=== PATIENT | male | born 1960 | race African-American/Black ===

== ENCOUNTER 2018-09-10 08:01 | Emergency (ER) | payer OTHER ==
[~2018-09-10] VITALS: Ht 175.3 cm; Wt 80.0 kg
[2018-09-10] MEDS ORDERED: KETOROLAC 30MG/ML VIAL IV STA (08:33)
[2018-09-10 09:00] LABS: BASOPHILS % 0.2 % (0.0-2.0); EOSINOPHILS % 0.1 % (0.0-5.0); HEMATOCRIT. 42.5 % (42.0-52.0); HEMOGLOBIN. 14.5 g/dL (14.0-18.0); LYMPHOCYTES % 26.2 % (20.0-50.0); MEAN CORPUSCULAR HEMOGLOBIN 32.7 pg (28.0-32.0); MEAN CORPUSCULAR VOLUME 95.7 fL (80.0-94.0); MEAN PLATELET VOLUME 8.9 fl (7.4-10.4); MONOCYTES % 10.9 % (2.0-8.0); NEUTROPHILS % 62.6 % (40.0-76.0); PLATELET 245 x1000/uL (130-400); RED BLOOD CELL COUNT 4.44 mill/uL (4.7-6.1); RED CELL DISTRIBUTION WIDTH 13.8 % (11.6-14.6)
[2018-09-10 09:06] LABS: CHLORIDE 103 mEq/L (98-107)
[2018-09-10 10:11] LABS: CLARITY URINE CLEAR (CLEAR); COLOR URINE ORANGE (YELLOW); KETONES URINE NEGATIVE (NEGATIVE); LEUKOCYTE ESTERASE URINE TRACE (NEGATIVE); NITRITE URINE NEGATIVE (NEGATIVE); OCCULT BLOOD URINE NEGATIVE (NEGATIVE); PH URINE 6.5 (4.5-8.0); PROTEIN URINE NEGATIVE (NEGATIVE); SPECIFIC GRAVITY URINE 1.021 (1.005-1.030)
[2018-09-10] MEDS ORDERED: ONDANSETRON HCL 4MG/2ML INJ IV ONE ×2 (10:45→11:45)
[2018-09-10] MEDS ORDERED: MORPHINE SULFATE 4 MG/ML CPJ (NOT FOR IM USE) IV ONE ×2 (10:45→11:45)
[2018-09-10 14:15] VITALS: BP 150/90
== END 2018-09-10 14:17 | disposition home or self-care (01) ==
LOC: ER 08:01
DX: R10.9 Unspecified abdominal pain (principal); I10 Essential (primary) hypertension; M10.9 Gout, unspecified; K76.0 Fatty (change of) liver, not elsewhere classified
CPT/HCPCS: 36415; 71045; 71100; 74176; 80053; 81003; 83690; 85025; 96374; 96375; 96376; 99284; J1885; J2270; J2405

== ENCOUNTER 2019-01-11 11:16 | Emergency (ER) | payer OTHER ==
[~2019-01-11] VITALS: Ht 162.6 cm; Wt 91.0 kg
[2019-01-11] MEDS ORDERED: FLUORESCEIN SODIUM 1MG/STRIP BOTHEYE ONE (14:30)
[2019-01-11] MEDS ORDERED: IBUPROFEN 600MG TABLET PO ONE (15:00)
[2019-01-11 16:03] VITALS: BP 182/110
== END 2019-01-11 16:05 | disposition home or self-care (01) ==
LOC: ER 11:16
DX: S00.12XA Contusion of left eyelid and periocular area, initial encounter (principal); I10 Essential (primary) hypertension; Y04.0XXA Assault by unarmed brawl or fight, initial encounter; Y93.89 Activity, other specified; Y92.018 Other place in single-family (private) house as the place of occurrence of the external cause
CPT/HCPCS: 99283

== ENCOUNTER 2019-01-22 07:59 | Inpatient (IN) | payer OTHER ==
[~2019-01-22] VITALS: Ht 167.6 cm; Wt 90.8 kg
[2019-01-22] MEDS ORDERED: ASPIRIN 81MG TABLET PO ONE (08:30)
[2019-01-22 08:32] LABS: BASOPHILS % 0.8 % (0.0-2.0); EOSINOPHILS % 0.2 % (0.0-5.0); HEMATOCRIT. 48.6 % (42.0-52.0); HEMOGLOBIN. 16.6 g/dL (14.0-18.0); LYMPHOCYTES % 45.8 % (20.0-50.0); MEAN CORPUSCULAR HEMOGLOBIN 31.9 pg (28.0-32.0); MEAN CORPUSCULAR VOLUME 93.5 fL (80.0-94.0); MEAN PLATELET VOLUME 8.6 fl (7.4-10.4); MONOCYTES % 11.9 % (2.0-8.0); NEUTROPHILS % 41.3 % (40.0-76.0); PLATELET 269 x1000/uL (130-400); RED CELL DISTRIBUTION WIDTH 15.6 % (11.6-14.6)
[2019-01-22 08:38] LABS: CHLORIDE 100 mEq/L (98-107)
[2019-01-22] MEDS ORDERED: ACETAMINOPHEN 325MG TABLET PO PRN (11:30)
[2019-01-22] MEDS ORDERED: ONDANSETRON HCL 4MG/2ML INJ IV PRN (11:30)
[2019-01-22] MEDS ORDERED: MORPHINE SULFATE 2 MG/ML CPJ (NOT FOR IM USE) IV PRN (11:30)
[2019-01-22] MEDS ORDERED: SODIUM CHLORIDE 0.9% 500 ML IV ONE (11:30)
[2019-01-22 13:25] LABS: HEPATITIS B SURFACE ANTIGEN NEGATIVE
[2019-01-22 13:30] VITALS: BP 128/86
[2019-01-22 13:55] LABS: HEPATITIS A AB IGM NEGATIVE (NEGATIVE)
[2019-01-22] MEDS: ENOXAPARIN 40MG/0.4ML SYR SUBCUT SCH (14:00)
[2019-01-22] MEDS ORDERED: LORAZEPAM 2MG/ML CPJ IV PRN (14:45)
[2019-01-22] MEDS ORDERED: CLONIDINE 0.2MG TABLET PO PRN (15:30)
[2019-01-22] MEDS ORDERED: CLONIDINE 0.1MG TABLET PO PRN (15:30)
[2019-01-22] MEDS ORDERED: POTASSIUM CHLORIDE 20MEQ TABLET SR PO NR (15:30)
[2019-01-22 16:00] VITALS: BP 122/90
[2019-01-22] MEDS ORDERED: FOLIC ACID 1 MG, THIAMINE HCL 100 MG, MVI, ADULT NO.1 10 ML in DEXTROSE 5% WATER 1,000 ML IV SCH ×4 (17:00)
[2019-01-22] MEDS: AMLODIPINE 2.5MG TABLET PO SCH ×2 (18:00→20:51)
[2019-01-22] MEDS: SODIUM CHLORIDE 0.9% 1,000 ML IV SCH ×2 (18:00→20:57)
[2019-01-22 20:21] VITALS: BP 121/83
[2019-01-22] MEDS: METOPROLOL TARTRATE 50MG TABLET PO SCH (20:51)
[2019-01-22] MEDS: CHLORDIAZEPOXIDE 25MG CAPSULE PO SCH (22:13)
[2019-01-22 22:47] LABS: *BARBITURATES SCREEN URINE NEGATIVE (NEGATIVE); *BENZODIAZEPINES SCREEN URINE NEGATIVE (NEGATIVE)
[2019-01-22 22:48] LABS: *AMPHETAMINES SCREEN URINE NEGATIVE (NEGATIVE); *COCAINE SCREEN URINE NEGATIVE (NEGATIVE); CANNABINOID URINE SCREEN NEGATIVE (NEGATIVE); METHADONE URINE SCREEN NEGATIVE (NEGATIVE); OPIATES URINE SCREEN NEGATIVE (NEGATIVE); PHENCYCLIDINE URINE SCREEN NEGATIVE (NEGATIVE)
[2019-01-23] VITALS: BP 125/80
[2019-01-23 04:00] VITALS: BP 111/81
[2019-01-23] MEDS: CHLORDIAZEPOXIDE 25MG CAPSULE PO SCH ×2 (05:45→14:19)
[2019-01-23 07:11] LABS: BASOPHILS % 0.9 % (0.0-2.0); EOSINOPHILS % 1.4 % (0.0-5.0); HEMATOCRIT. 44.2 % (42.0-52.0); HEMOGLOBIN. 15.1 g/dL (14.0-18.0); LYMPHOCYTES % 43.7 % (20.0-50.0); MEAN CORPUSCULAR HEMOGLOBIN 32.2 pg (28.0-32.0); MEAN CORPUSCULAR VOLUME 94.1 fL (80.0-94.0); MONOCYTES % 10.4 % (2.0-8.0); NEUTROPHILS % 43.6 % (40.0-76.0); PLATELET 246 x1000/uL (130-400); RED CELL DISTRIBUTION WIDTH 16.2 % (11.6-14.6)
[2019-01-23 07:44] LABS: CHLORIDE 103 mEq/L (98-107)
[2019-01-23 07:56] LABS: CREATINE KINASE 484 IU/L (39-308); CREATINE KINASE MB FRACTION 1.4 ng/mL (0.5-3.6)
[2019-01-23 07:57] LABS: LDL CHOLESTEROL 198 mg/dL (5-100)
[2019-01-23 07:59] LABS: HDL CHOLESTEROL 80 mg/dL (40-59)
[2019-01-23 08:00] VITALS: BP 113/75
[2019-01-23] MEDS: METOPROLOL TARTRATE 50MG TABLET PO SCH (08:39)
[2019-01-23] MEDS: AMLODIPINE 2.5MG TABLET PO SCH (08:40)
[2019-01-23] MEDS ORDERED: ASPIRIN 81MG TABLET PO SCH (09:00)
[2019-01-23] MEDS: SODIUM CHLORIDE 0.9% 1,000 ML IV SCH (09:57)
[2019-01-23] MEDS ORDERED: POTASSIUM CHLORIDE 20MEQ TABLET SR PO SCH (11:30)
[2019-01-23 12:00] VITALS: BP 111/80
[2019-01-23] MEDS: ENOXAPARIN 40MG/0.4ML SYR SUBCUT SCH (14:00)
== END 2019-01-23 14:41 | disposition left against medical advice (07) | DRG 203 ==
LOC: ER 07:59 → 8WST 11:08 → EDBEDREQ 11:10 → ENRESERV 11:39 → 6WST 18:23
PROVIDERS: ADMIT Internal Medicine; ATTEND Internal Medicine
DX: M94.0 Chondrocostal junction syndrome [Tietze] (principal); N17.0 Acute kidney failure with tubular necrosis; E87.1 Hypo-osmolality and hyponatremia; I24.9 Acute ischemic heart disease, unspecified; I10 Essential (primary) hypertension; B19.20 Unspecified viral hepatitis C without hepatic coma; F10.10 Alcohol abuse, uncomplicated; Z87.891 Personal history of nicotine dependence; I25.2 Old myocardial infarction; Z82.49 Family history of ischemic heart disease and other diseases of the circulatory system; Z71.41 Alcohol abuse counseling and surveillance of alcoholic
CPT/HCPCS: 36415; 71045; 80061; 80305; 82550; 82553; 83735; 83880; 84443; 84484; 85379; 86705; 86709; 86803; 87340; 93005; 93970; 96374; 99285; J1650; J3411; J3490; J7040; J7070

== ENCOUNTER 2019-01-25 08:02 | Emergency (ER) | payer OTHER ==
[~2019-01-25] VITALS: Ht 162.6 cm; Wt 90.0 kg
[2019-01-25 08:13] VITALS: BP 138/90
== END 2019-01-25 08:27 | disposition left against medical advice (07) ==
LOC: ER 08:02
DX: Z53.21 Procedure and treatment not carried out due to patient leaving prior to being seen by health care provider (principal)

== ENCOUNTER 2024-03-09 08:48 | Emergency (ER) | payer MEDICAID, OTHER ==
[~2024-03-09] VITALS: Ht 180.3 cm; Wt 113.0 kg
[2024-03-09 08:51] VITALS: BP 145/90; PULSE 82; RESP 16; TEMP 98.8; O2SAT 98
[2024-03-09] MEDS: SODIUM CHLORIDE 0.9% 1,000 ML IV ONE (09:00)
[2024-03-09] MEDS ORDERED: SODIUM CHLORIDE 0.9% 1,000 ML IV ONE (09:00)
[2024-03-09] MEDS ORDERED: MECLIZINE 25MG TABLET PO ONE (09:15)
[2024-03-09 09:31] LABS: BASOPHILS % 0.4 % (0.0-2.0); DIFFERENTIAL COMMENT 0; HEMATOCRIT. 38.3 % (42.0-52.0); HEMOGLOBIN. 12.8 g/dL (14.0-18.0); LYMPHOCYTES % 34.3 % (20.0-50.0); MEAN CORPUSCULAR HEMOGLOBIN 33.9 pg (28.0-32.0); MEAN CORPUSCULAR HGB CONC 33.5 g/dL (31.0-37.0); MEAN PLATELET VOLUME 8.2 fl (7.4-10.4); MONOCYTES % 4.1 % (2.0-8.0); NEUTROPHILS % 61.2 % (40.0-76.0); PLATELET 230 x1000/uL (130-400); RED BLOOD CELL COUNT 3.79 mill/uL (4.7-6.1); RED CELL DISTRIBUTION WIDTH 13.6 % (11.6-14.6)
[2024-03-09 09:39] LABS: CARBON DIOXIDE 17 mEq/L (21-32); CHLORIDE 112 mEq/L (98-107); POTASSIUM 3.3 mEq/L (3.5-5.1); SODIUM 146 mEq/L (136-145)
[2024-03-09 09:40] LABS: CALCIUM 9.9 mg/dL (8.7-10.4)
[2024-03-09 09:42] LABS: PROTHROMBIN TIME 10.9 sec (9.6-11.0)
[2024-03-09 09:44] LABS: CREATININE 1.1 mg/dL (0.6-1.3); GLUCOSE 180 mg/dL (70-105)
[2024-03-09 09:45] LABS: ETHANOL BLOOD 16 mg/dL (<10); UREA NITROGEN BLOOD 14 mg/dL (9-23)
[2024-03-09] MEDS: MECLIZINE 12.5MG TABLET PO NR (09:45)
[2024-03-09 09:46] LABS: TROPONIN I HIGH SENSITIVITY 6 ng/L (3.0-53)
[2024-03-09] MEDS: ONDANSETRON HCL 4MG/2ML INJ IV STA (10:39)
[2024-03-09] MEDS: POTASSIUM CHLORIDE 20MEQ TABLET SR PO ONE (11:06)
[2024-03-09 13:02] LABS: CLARITY URINE CLEAR (CLEAR); COLOR URINE YELLOW (YELLOW); GLUCOSE URINE 1+ (NEGATIVE); KETONES URINE NEGATIVE (NEGATIVE); LEUKOCYTE ESTERASE URINE NEGATIVE (NEGATIVE); NITRITE URINE NEGATIVE (NEGATIVE); OCCULT BLOOD URINE NEGATIVE (NEGATIVE); PH URINE 6.5 (4.5-8.0); PROTEIN URINE NEGATIVE (NEGATIVE); SPECIFIC GRAVITY URINE 1.011 (1.005-1.030); UROBILINOGEN URINE 0.2 E.U./dL (0.2-1.0)
[2024-03-09 13:20] LABS: SQUAMOUS EPITHELIAL CELL URINE RARE /lpf (RARE/1+)
[2024-03-09 13:21] LABS: BACTERIA URINE NONE SEEN; RBC URINE 0-2 /hpf (0-2)
[2024-03-09 13:22] LABS: WBC URINE 0-2 /hpf (0-2)
== END 2024-03-09 14:27 | disposition home or self-care (01) ==
LOC: ER 08:48
DX: F10.129 Alcohol abuse with intoxication, unspecified (principal); E86.0 Dehydration; I10 Essential (primary) hypertension; R51.9 Headache, unspecified; Y90.0 Blood alcohol level of less than 20 mg/100 ml
CPT/HCPCS: 80048; 81003; 80320; 83690; 85025; 85610; 84484; 36415; 71045; 70450; 93005; 96361; 96374; 99285; J8597; J2405; J7030; Z7610 ×2; G0480